=== PATIENT | female | born 1990 | race Caucasian/White ===

== ENCOUNTER 2022-02-03 10:34 | Emergency (ER) | payer BC, SELFPAY ==
--- NOTE | ~2022-02-03 | XR_ITS ---
XR finger 3rd LT min 2V DATE: 02/03/2022 10:56 INDICATION: Smashed finger in car door last night TECHNIQUE: 4 views of third digit COMPARISON: None FINDINGS: No fracture or dislocation, periosteal reaction or bone destruction, subcutaneous emphysema or radiopaque foreign body. IMPRESSION: Negative Reviewed, dictated and finalized at location B. O MANAGER IMPRESSION: Negative
[2022-02-03 10:47] VITALS: BP 136/77; PULSE 89; RESP 18; TEMP 36.6; O2SAT 100
--- NOTE | 2022-02-03 11:14 | ED.UPPEXIN ---
HPI - Extremity Injury (Upper) General Chief Complaint: Extremity Injury, Upper Stated Complaint: Middle Finger Lt Hand Pain Time Seen by Provider: 02/03/22 11:15 Source: patient Mode of arrival: ambulatory Limitations: no limitations History of Present Illness HPI narrative: 31-year-old female Presents with complaint of bruising, swelling and pain to left middle finger. patient states that she smashed her left middle finger in car door last night. 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 Wanted to make sure that she does not have fracture. Distal neurovascularly and range of motion intact. All systems reviewed and negative except as noted above. Related Data Home Medications Medication Instructions Recorded Confirmed sertraline 50 mg tablet 50 mg DAILY 02/03/22 02/03/22 Allergies Allergy/AdvReac Type Severity Reaction Status Date / Time Penicillins Allergy Hives Verified 02/03/22 10:52 Review of Systems Review of Systems: CONSTITUTIONAL: Denies fever, chills, or sweats. EYES: Denies visual changes, redness, or discharge. ENT: Denies rhinorrhea, congestion, sore throat, or otalgia. CARDIOVASCULAR: Denies chest pain, palpitations, or edema. RESPIRATORY: Denies cough or dyspnea. GASTROINTESTINAL: Denies abdominal pain, nausea, vomiting, or diarrhea. GENITOURINARY: Denies dysuria or hematuria. SKIN: Denies rash or itching. MUSCULOSKELETAL: Denies back pain . Reports pain and swelling to left middle finger. NEUROLOGIC: Denies headache, numbness, or weakness. PSYCHIATRIC: Denies anxiety or depression. All other systems reviewed are negative, except as documented in HPI. PMFSH Comments At time of signature, agree with nursing past medical, surgical, social and family history. There is no relevant family history pertinent to the presenting complaint. Exam Narrative: GENERAL: This is a well-nourished, well-developed patient, in no apparent distress. HEAD: normocephalic, atraumatic. EYES: PERRL. Sclera clear/white. Vision is grossly intact. EARS: External ears normal NOSE: External nose normal NECK: Neck supple, non-tender without lymphadenopathy, masses or thyromegaly. CARDIOVASCULAR: Regular rate and rhythm without murmurs, gallops, or rubs. RESPIRATORY: Clear to auscultation. Breath sounds equal bilaterally. No wheezes, rales, or rhonchi. SKIN: warm, Dry, intact with no suspicious lesions or rash, good texture and turgor. NEURO: awake, alert, and oriented to person, place and time. There were no obvious focal neurologic abnormalities. EXTREMITIES: Generalized tenderness to left middle finger with bruising and mild swelling. Range of motion intact. Distal neurovascularly intact. No open wounds noted. Course Course Level of Care: Express Care Visit Vital Signs Vital signs: Vital Signs Temperature 36.6 C 02/03/22 10:47 Pulse Rate 89 02/03/22 10:47 Respiratory Rate 18 02/03/22 10:47 Blood Pressure 136/77 02/03/22 10:47 Pulse Oximetry 100 02/03/22 10:47 Oxygen Delivery Room Air 02/03/22 10:47 Temperature 36.6 C 02/03/22 10:47 Pulse Rate 89 02/03/22 10:47 Respiratory Rate 18 02/03/22 10:47 Blood Pressure 136/77 02/03/22 10:47 Pulse Oximetry 100 02/03/22 10:47 Oxygen Delivery Room Air 02/03/22 10:47 Reviewed MDM - Extremity Injury (Upper) MDM Narrative Medical decision making narrative: discussed x-ray results with patient. Recommend follow-up with primary care physician if pain is not improving. At this time patient did not want any splinting to her finger. Patient is aware of diagnosis, understands and agrees to treatment plan. Anticipatory guidance given. Patient agrees to follow-up as directed and is aware of reasons to seek care at the emergency department. Portions of this record may have been created with voice recognition software Imaging Data My impression: agree with radiologist Rad
== END 2022-02-03 11:25 | disposition home or self-care (01) ==
PROVIDERS: Emergency Provider Nurse Practitioner Family
DX: S60.032A Contusion of left middle finger without damage to nail, initial encounter (principal); X58.XXXA Exposure to other specified factors, initial encounter
CPT/HCPCS: 73140; 99203; G0463